=== PATIENT | female | born 1975 | race Caucasian/White ===

== ENCOUNTER 2020-04-01 06:19 | Day surgery (SDC) | payer OTHER, SELFPAY ==
[~2020-04-01] VITALS: Ht 162.6 cm; Wt 72.6 kg
[2020-04-01] MEDS ORDERED: diphenhydrAMINE 50 MG/ML VIAL ONE (07:21)
[2020-04-01] MEDS ORDERED: MIDAZOLAM 5 MG/5 ML VIAL ONE (07:21)
[2020-04-01] MEDS ORDERED: fentaNYL citrate 0.05 MG/ML VIAL ONE (07:21)
[2020-04-01] MEDS ORDERED: MIDAZOLAM 2 MG/2 ML VIAL IVP ONE (08:05)
[2020-04-01] MEDS ORDERED: fentaNYL citrate 0.05 MG/ML VIAL IVP ONE (08:05)
== END 2020-04-01 09:30 | disposition home or self-care (01) ==
LOC: MMU 06:19 → MDS 06:19
PROVIDERS: ATTEND Internal Medicine Gastroenterology
DX: K21.9 Gastro-esophageal reflux disease without esophagitis (principal); K59.00 Constipation, unspecified; R13.10 Dysphagia, unspecified; I10 Essential (primary) hypertension; Z79.899 Other long term (current) drug therapy; Z90.49 Acquired absence of other specified parts of digestive tract; Z90.89 Acquired absence of other organs; Z20.828 Contact with and (suspected) exposure to other viral communicable diseases
CPT/HCPCS: 43239; 81025; J2250; J3010; U0003; J1200